=== PATIENT | female | born 1960 | race Caucasian/White ===

== ENCOUNTER 2021-10-28 11:03 | Emergency (ER) | payer OTHER ==
[~2021-10-28] VITALS: Ht 172.7 cm; Wt 58.1 kg
[2021-10-28] MEDS ORDERED: MUPIROCIN15 GM TOP (12:08)
[2021-10-28] MEDS ORDERED: BACTRIM DS TAB1 EACH PO (12:08)
== END 2021-10-28 12:37 | disposition home or self-care (01) ==
LOC: ED 11:03
DX: L73.9 Follicular disorder, unspecified (principal); J44.9 Chronic obstructive pulmonary disease, unspecified; Z88.8 Allergy status to other drugs, medicaments and biological substances
CPT/HCPCS: 87070; 99283

== ENCOUNTER 2024-02-01 08:21 | Emergency (ER) | payer OTHER ==
[~2024-02-01] VITALS: Ht 172.7 cm; Wt 62.7 kg
[~2024-02-01 08:21] MED LIST: BACTRIM DS TAB1 EACH PO; MUPIROCIN15 GM TOP
--- OUTSIDE RECORDS SUMMARY | 2024-02-01 08:22 | XMS ---
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 E.D. VISIT COUNT (12 MO.) 3 [employer] TOTAL 3 NOTE: Visits indicate total known visits. ED/UCC VISIT TRACKING (12 MO.) 02/01/2024 08:21 JNINY Hernandez [place] TYPE: Emergency COMPLAINT: - BACK PAIN 01/31/2024 15:52 JINNY Hernandez [place] TYPE: Emergency COMPLAINT: - BACK PAIN 01/31/2024 10:59 JINNY Hernandez [place] TYPE: Emergency COMPLAINT: - BACK PAIN INPATIENT VISIT TRACKING (12 MO.) No inpatient visits to display in this time frame [id number]
[2024-02-01] MEDS ORDERED: KETOROLAC TROMETHAMINE 15 MG/ML VIAL IV ONE (09:00)
[2024-02-01 09:11] LABS: BASOPHILS 0.3 % (0-2); EOSINOPHILS 8.3 % (0-6); HEMOGLOBIN 11.2 g/dL (12.0-18.0); LYMPHOCYTES 14.5 % (24-44); MCH 28.5 (27-36); MCV 86.4 fl (81-99); MONOCYTES 8.5 % (0-12); NEUTROPHILS 68.4 % (39-80); PLATELET COUNT 446 K/uL (140-440); RBC 3.94 M/ul (4.3-5.7); RDW 13.4 (10.5-15.0)
[2024-02-01 09:28] LABS: ALBUMIN 2.6 g/dL (3.4-5.0); ALBUMIN/GLOBULIN RATIO 0.62 (1.1-2.4); BILIRUBIN, TOTAL 0.5 ng/dL (0.2-1.0); BUN/CREATININE RATIO 22.85 (6.0-28.6); CALCIUM 9.2 mg/dL (8.5-10.1); CREATININE, SERUM 0.7 mg/dL (0.55-1.02); PROTEIN, TOTAL 6.8 g/dL (6.4-8.2)
[2024-02-01] MEDS ORDERED: NAPROSYN500 MG PO (11:29)
[2024-02-01] MEDS ORDERED: DOXYCYCLINE HY100 MG PO (11:29)
[2024-02-01] MEDS ORDERED: HYDROCODON-ACE1 EA10 PO (11:29)
[2024-02-01] MEDS ORDERED: LIDODERM1 EACH TOP (11:29)
[2024-02-01 11:41] VITALS: BP 140/78
== END 2024-02-01 11:42 | disposition home or self-care (01) ==
LOC: ED 08:21
PROVIDERS: Emergency Medicine
DX: J90 Pleural effusion, not elsewhere classified (principal); N63.10 Unspecified lump in the right breast, unspecified quadrant; J44.9 Chronic obstructive pulmonary disease, unspecified; Z88.1 Allergy status to other antibiotic agents; Z79.899 Other long term (current) drug therapy
CPT/HCPCS: 36415; 71250; 80053; 85025; 96374; 99284-25; J1885